=== PATIENT | female | born 1980 | race Caucasian/White ===

== ENCOUNTER 2017-07-09 12:23 | Emergency (ER) | payer OTHER ==
[~2017-07-09] VITALS: Ht 157.5 cm; Wt 66.8 kg
[2017-07-09] MEDS ORDERED: KETOROLAC TROMETHAMINE 30 MG/ML VIAL IM ONE (14:30)
[2017-07-09 15:43] VITALS: BP 125/81
== END 2017-07-09 15:43 | disposition home or self-care (01) ==
LOC: EMS 12:24
DX: S92.512A Displaced fracture of proximal phalanx of left lesser toe(s), initial encounter for closed fracture (principal); V29.9XXA Motorcycle rider (driver) (passenger) injured in unspecified traffic accident, initial encounter; Y93.55 Activity, bike riding; Y92.89 Other specified places as the place of occurrence of the external cause; Y99.8 Other external cause status
CPT/HCPCS: 73630; 96372; 99284; J1885